=== PATIENT | female | born 1965 | race Caucasian/White ===

== ENCOUNTER 2017-03-01 08:56 | Emergency (ER) | payer OTHER ==
[2017-03-01 09:42] VITALS: BP 123/77
--- NOTE | 2017-03-01 09:43 | UC ---
Throat Pain/Nasal Fransico HPI - HPI Summary HPI Summary: sinus pain and pressure x 7 days + nasal congestion , pnd, sore throat , no fever, no chills, no cough hx of psoriasis right elbow , been itchy - History of Current Complaint Chief Complaint: UCRespiratory Stated Complaint: SINUS Time Seen by Provider: 03/01/17 09:34 Hx Obtained From: Patient Hx Last Menstrual Period: 02/27/17 Onset/Duration: Gradual Onset, Lasting Days - 7, Still Present Severity: Moderate Cough: None Associated Signs & Symptoms: Positive: Sinus Discomfort, Nasal Discharge, Rash - right elbow. Negative: Wheezing, Fever, Vomiting - Allergies/Home Medications Allergies/Adverse Reactions: Allergies Allergy/AdvReac Type Severity Reaction Status Date / Time Gluten Meal Allergy See Comment Verified 03/01/17 09:28 Home Medications: Home Medications Loratadine 10 mg PO DAILY 03/01/17 [History Confirmed 03/01/17] PMH/Surg Hx/FS Hx/Imm Hx - Additional Past Medical History Additional PMH: psoriasis - Surgical History Surgical History: Yes Surgery Procedure, Year, and Place: x 3, tubal ligation, carpal tunnel both arms - Family History Known Family History: Positive: Hypertension - Social History Alcohol Use: Occasionally Substance Use Type: None Smoking Status (MU): Never Smoked Tobacco Household Exposure Type: Cigarettes - Immunization History Most Recent Influenza Vaccination: Not the Season Review of Systems Constitutional: Negative Skin: Rash Eyes: Negative ENT: Sore Throat, Ear Ache, Nasal Discharge Respiratory: Negative Cardiovascular: Negative Gastrointestinal: Negative Genitourinary: Negative All Other Systems Reviewed And Are Negative: Yes Physical Exam Triage Information Reviewed: Yes Appearance: Well-Appearing, No Pain Distress, Well-Nourished Vital Signs: Initial Vital Signs Temp 98.6 F 03/01/17 09:23 Pulse 85 03/01/17 09:23 Resp 16 03/01/17 09:23 BP 123/77 03/01/17 09:23 Pulse Ox 100 03/01/17 09:23 Eyes: Positive: Conjunctiva Clear ENT: Positive: Normal ENT inspection, Hearing grossly normal, Pharyngeal erythema, Nasal congestion, Nasal drainage, TMs normal. Negative: Tonsillar swelling, Tonsillar exudate Neck: Positive: Supple, Nontender, No Lymphadenopathy Respiratory: Positive: Chest non-tender, Lungs clear, Normal breath sounds Cardiovascular: Positive: RRR, No Murmur, Pulses Normal Skin: Positive: rashes - psoriasis right elbow Throat Pain/Nasal Course/Dx - Differential Dx/Diagnosis Provider Diagnoses: sinusitis. psoriasis Discharge - Discharge Plan Condition: Stable Disposition: HOME Prescriptions: Amoxicillin/Clavulanate TAB* [Augmentin TAB 875*] 875 mg PO BID #20 tab Triamcinolone 0.1% CREAM(NF) [Kenalog Cream 0.1%(NF)] 1 applic TOPICAL BID #60 gm Patient Education Materials: Sinusitis (ED), Psoriasis (ED) Referrals: Veronika Briggs MD [Primary Care Provider] - 7 Days
== END 2017-03-01 09:49 | disposition home or self-care (01) ==
LOC: UCCORT 08:56
DX: J32.9 Chronic sinusitis, unspecified (principal); L40.9 Psoriasis, unspecified
CPT/HCPCS: 99212; G0463

== ENCOUNTER 2017-12-12 10:18 | Emergency (ER) | payer OTHER ==
[2017-12-12 11:19] VITALS: BP 117/74
[2017-12-12] MEDS ORDERED: Dexamethasone TAB* 4 MG PO ONE (11:50)
--- NOTE | 2017-12-12 11:50 | UC ---
UC General HPI - HPI Summary HPI Summary: pt is c/o having a sore throat and swollen glands for about a week. she has nasal congestion but states that is chronic from allergies. she reports having chiils but no cough, sob or difficulty with swallowing. - History of Current Complaint Chief Complaint: UCRespiratory Stated Complaint: SORE THROAT Time Seen by Provider: 12/12/17 11:43 Hx Obtained From: Patient Hx Last Menstrual Period: 12/04/17 Onset/Duration: Gradual Onset Timing: Constant Pain Intensity: 6 Aggravating: nothing Alleviating: nothing including otc medications Associated Signs & Symptoms: Positive: Fever - subjective. Negative: Headache, SOB - Allergy/Home Medications Allergies/Adverse Reactions: Allergies Allergy/AdvReac Type Severity Reaction Status Date / Time gluten Allergy Unknown GI Upset Verified 12/12/17 11:11 Home Medications: Home Medications Celecoxib [Celebrex 50 MG CAP] 50 mg PO BID 12/12/17 [History Confirmed 12/12/17 ] PMH/Surg Hx/FS Hx/Imm Hx Previously Healthy: No - OA c-spine. Reactive airways - Surgical History Surgical History: Yes Surgery Procedure, Year, and Place: x 3, tubal ligation, carpal tunnel both arms. NECK- NERCVE BLOCK - Family History Known Family History: Positive: Hypertension - Social History Alcohol Use: Occasionally Substance Use Type: None Smoking Status (MU): Never Smoked Tobacco Household Exposure Type: Cigarettes - Immunization History Most Recent Influenza Vaccination: Not the Season Vaccination Up to Date: Yes Review of Systems Constitutional: Negative Skin: Negative Eyes: Negative ENT: Sore Throat, Nasal Discharge Respiratory: Negative Cardiovascular: Negative Gastrointestinal: Negative Genitourinary: Negative Motor: Negative Neurovascular: Negative Musculoskeletal: Arthralgia - neck-chronic and unchanged Neurological: Negative Psychological: Negative Is Patient Immunocompromised?: No All Other Systems Reviewed And Are Negative: Yes Physical Exam Triage Information Reviewed: Yes Appearance: Well-Appearing Vital Signs: Initial Vital Signs Temp 99.1 F 12/12/17 11:13 Pulse 82 12/12/17 11:13 Resp 16 12/12/17 11:13 BP 117/74 12/12/17 11:13 Pulse Ox 100 12/12/17 11:13 Vital Signs Reviewed: Yes Eye Exam: Normal ENT: Positive: Pharyngeal erythema, Nasal congestion, TMs normal, Uvula midline - with mild erythema and moderated swelling. no airway compromise.. Negative: Nasal drainage, Tonsillar swelling, Tonsillar exudate, Trismus, Muffled voice, Hoarse voice, Sinus tenderness Neck: Positive: Supple, No Lymphadenopathy, Tenderness @ - peritonsilar nodes Respiratory: Positive: Lungs clear, Normal breath sounds Cardiovascular: Positive: RRR, No Murmur Abdomen Description: Positive: Nontender, No Organomegaly, Soft Bowel Sounds: Positive: Present Musculoskeletal: Positive: ROM Intact Neurological: Positive: Alert Psychological: Positive: Age Appropriate Behavior Skin Exam: Normal Diagnostics - Laboratory Diagnostic Studies Completed/Ordered: rapid strep=neg Course/Dx - Course Course Of Treatment: non toxic, no concern for abscess, no airway compromise. rapid strep was neg; however, will cover for presumptive bacterial infection. decadron po here for the swelling as well. need for close f/u advised. - Differential Dx - Multi-Symptom Provider Diagnoses: Uvulitis Discharge - Sign-Out/Discharge Documenting (check all that apply): Discharge - Discharge Plan Condition: Stable Disposition: HOME Prescriptions: Amoxicillin/Clavulanate TAB* [Augmentin TAB 875*] 875 mg PO BID 10 Days #20 tab Patient Education Materials: Uvulitis (ED) Referrals: Veronika Briggs MD [Primary Care Provider] - - Billing Disposition and Condition Condition: STABLE Disposition: HOME
== END 2017-12-12 12:08 | disposition home or self-care (01) ==
LOC: UCCORT 10:18
DX: K12.2 Cellulitis and abscess of mouth (principal); Z77.22 Contact with and (suspected) exposure to environmental tobacco smoke (acute) (chronic)
CPT/HCPCS: 87651; 99212; G0463; J8540

== ENCOUNTER 2018-07-31 13:46 | Emergency (ER) | payer OTHER ==
--- OUTSIDE RECORDS SUMMARY | 2018-07-31 14:27 | XMS REPORT | Continuity of Care Document ---
:1965 External Reference #:[id number] Author Name Michaelle Marti M.D. Address [address] [place] [address] Care Team Providers Name Role Phone Veronika Briggs MD Primary Care Physician Unavailable Payers Type Date Identification Numbers Payment Provider Subscriber Effective: Policy Number: Lifetime Benefit Viri Darling 2012 [id number] Solution Group Number: [id number] [address] [address] PayID: [place] [address] Advance Directives Description No Information Available Problems Date Description Provider Status Onset: 05/16/2018 Chronic sinusitis Michaelle Marti M.D. Active Onset: 05/16/2018 Allergic rhinitis Michaelle Marti M.D. Active Onset: 05/16/2018 Uncomplicated moderate persistent Michaelle Marti M.D. Active asthma Family History Date Family Member(s) Problem(s) Comments General Seasonal Allergies General Asthma General Bronchitis General Diabetes General Gastroesophageal Reflux Disease (GERD) General Heart Disease General Hypertension General Thyroid Disease General sinus disorders Father Seasonal Allergies Father Asthma Father Bronchitis Father Diabetes Father Thyroid Disease Father sinus disorders Mother Gastroesophageal Reflux Disease (GERD) Mother Heart Disease Mother Hypertension Social History Type Date Description Comments Sex Unknown Lives With Spouse Lives With Son Home Environment 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 Home Environment Has a window air conditioner Home Environment Stairs are present Home Environment Unfinished Basement Home Environment The basement is wet and dehumidifier used Home Environment The basement is wet and sump pump used Home Environment 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 Home Environment Mattress is 3 years old Home Environment Mattress is encased in an allergy proof case Home Environment Regular Mattress Home Environment Pillows are encased in an allergy proof case Home Environment Pillows are polyester Home Environment Pillows are rubber (foam) Home Environment Uses a dehumidifier Home Environment There are draperies in the home Home Environment The home is margarita Home Environment The floors are wood Home Environment The floors are carpeted Home Environment Uses propane gas heating Home Environment [place] Home Environment Water Source: Well Tobacco Use Start: Unknown Home is not smoke-free Smoke-Free Work is smoke-free Pets 3 dogs Pets Animals sleep in bedroom 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 ETOH Use Occasionally consumes alcohol Tobacco Use Start: Unknown Patient has never smoked Recreational Drug Use Denies Drug Use Allergies, Adverse Reactions, Alerts Description No Known Drug Allergies Medications Medication Date Status Form Strength Qnty SIG Indications Ordering Provider Symbicort 05/16 Active Aerosol 80-4.5mcg 10.20 2 puffs J45.40 Michaelle M /2017 /Act 0gm inhalation Kaia, twice a day M.DBerkley Mometasone 05/16 Active Suspension 50mcg/Act 17gm 2 sprays in J30.9 [facility] Furoate /2017 each joel Martitril Iram daily Levocetirizine 05/16 Active Tablets 5mg 30tab 1 by mouth J30.9 [facility] Dihydrochloride /2017 s every day Iram Marti Ventolin HFA Active Aerosol 108(90Bas 2 every 4 Unknown /0000 e) hours as mcg/Act needed Celebrex Active Capsules 50mg 1 tab twice Unknown /0000 a day Iron 100 Plus Active Tablets 100-250-0 three times Unknown /0000 .025-1mg a day Immunizations CPT Code Status Date Vaccine Lot # 61554 Given Unknown Pneumococcal Conjugate Vaccine 13 Valent For Intramuscular Use Vital Signs Date Vital Result Comment 07/04/2018 11:46am Height 62.5 inches 5'2.50" Weight 202.00 lb Weight 91.627 kg Respiratory Rate 18 /min Heart Rate 89 /min O2 % BldC Oximetry 96 % BP Systolic 108 mmHg BP Diastolic 76 mmHg Asthma Control Test 24 BMI (Body Mass Index) 36.4 kg/m2 05/16/2018 2:58pm Height 62.5 inches 5'2.50" Weight 202.00 lb Weight 91.627 kg Respiratory Rate 20 /min Heart Rate 98 /min O2 % BldC Oximetry 97 % BP Systolic 126 mmHg BP Diastolic 92 mmHg Asthma Control Test 23 BMI (Body Mass Index) 36.4 kg/m2 Results Test Date Facility Test Result H/L Range Note Laboratory test 05/19/2018 [facility] Cat <0.10 kU/L Class 0 [address] Hair/[place] [address] [phone] Dog Hair/Dander 3.13 kU/L Class III D Farinae Mite 17.70 kU/L Class IV D Pteronyssinus 17.20 kU/L Class IV [place],White <0.10 kU/L Class 0 Maple/[place] Ige T001 <0.10 kU/L Class 0 Miky,White <0.10 kU/L Class 0 [place] Tree <0.10 kU/L Class 0 Elm,Icelandic (White) <0.10 kU/L Class 0 [place],White <0.10 kU/L Class 0 T022 Pecan Tree <0.10 kU/L Class 0 [place],Icelandic T061 <0.10 kU/L Class 0 [place],Black <0.10 kU/L Class 0 Anthony 10.70 kU/L Class IV Orchard Grass 8.24 kU/L Class IV Ragweed,Short/ <0.10 kU/L Class 0 Ruth Elder,Rough W016 <0.10 kU/L Class 0 Cocklebur <0.10 kU/L Class 0 2 Alternaria Alternata 0.22 kU/L Class 0/I Apergillis Fumigatus Ige <0.10 kU/L Class 0 Cladosporium Herbarum <0.10 kU/L Class 0 Birch,White <0.10 kU/L Class 0 Plantain,Lithuanian <0.10 kU/L Class 0 Pigweed,Rough <0.10 kU/L Class 0 Lambs Quarter <0.10 kU/L Class 0 [place] Tree Ige T010 <0.10 kU/L Class 0 1 Levels of Specific IgE Class Description of Class ----- < 0.10 0 Negative 0.10 - 0.31 0/I Equivocal/Low 0.32 - 0.55 I Low 0.56 - 1.40 II Moderate 1.41 - 3.90 III High 3.91 - 19.00 IV Very High 19.01 - 100.00 V Very High >100.00 Very High 2 Performed at: [facility] [id number] Steam Engineer: Esteban Brown MD, Phone: [phone] Procedures Date Code Description Status 07/04/2018 99738 Pre PFT Completed 05/16/2018 63604 Pulmonary Function Test Completed Encounters Type Date Location Provider Dx Diagnosis Office Visit 07/04/2018 [facility] Michaelle Garner45.40 Moderate persistent 11:40a Debra Marti. asthma, uncomplicated J32.9 Chronic sinusitis, unspecified J30.1 Allergic rhinitis due to pollen J30.89 Other allergic rhinitis J30.81 Allergic rhinitis due to animal (cat) (dog) hair and dander Office Visit 05/16/2018 3:00p [place] Michaelle Mejia.40 Moderate persistent Office Iram Marti asthma, uncomplicated J30.9 Allergic rhinitis, unspecified J32.9 Chronic sinusitis, unspecified Plan of Treatment Future Appointment(s):08/22/2018 4:20 pm - Michaelle Marti M.D. at [facility]07/04/2018 - Michaelle Marti M.D.J45.40 Moderate persistent asthma, wvjtbmicgdpttW80.9 Chronic sinusitis, oipsyutgzrbJ45.1 Allergic rhinitis due to jkypkbF85.89 Other allergic lkrvysasV34.81 Allergic rhinitis due to animal (cat ) (dog) hair and danderFollow up:4 months, CHECK-UP/FOLLOW UP VISIT: Continued management of patient's medical care.Recommendations:prePFT today Pathophysiology of asthma reviewed labs reviewed - copy provided to patient Environmental controls reviewed risks/benefits of IT discussed - pt not interested at this point. continue Albuterol 2 puffs every 4 hours as needed for cough, shortness of breath or chest tightness. Call if using >2x/week consistently continue Symbicort 80/4.5 2 puffs twice daily; rinse mouth after use continue Levocetirizine 5 mg once daily continue Mometasone 2 sprays to each nostril once daily callif infections recur - would recommend immune work up in that case
[2018-07-31] MEDS ORDERED: Dexamethasone IV* 4 MG/ML 1 ML (4 MG) PO ONE (14:30)
--- NOTE | 2018-07-31 14:36 | UC ---
UC General HPI - HPI Summary HPI Summary: sore throat x 2 weeks. - History of Current Complaint Stated Complaint: SORE THROAT Time Seen by Provider: 07/31/18 14:25 Hx Obtained From: Patient Hx Last Menstrual Period: 12/04/17 Onset/Duration: Gradual Onset Timing: Constant Alleviating: partial with gargling Associated Signs & Symptoms: Negative: Fever - Allergy/Home Medications Allergies/Adverse Reactions: Allergies Allergy/AdvReac Type Severity Reaction Status Date / Time gluten Allergy Unknown GI Upset Verified 07/31/18 14:32 Home Medications: Home Medications Budesonide/Formote 160/4.5(NF) [Symbicort 160/4.5 (NF)] 1 puff INH BID 07/31/18 [History Confirmed 07/31/18] Levocetirizine Dihydrochloride [Xyzal Allergy 24Hr] 5 mg PO DAILY 07/31/18 [ History Confirmed 07/31/18] PMH/Surg Hx/FS Hx/Imm Hx Respiratory History: Asthma - Surgical History Surgical History: Yes Surgery Procedure, Year, and Place: x 3, tubal ligation, carpal tunnel both arms. NECK- NERCVE BLOCK - Family History Known Family History: Positive: Hypertension - Social History Occupation: Employed Full-time Alcohol Use: Occasionally Substance Use Type: None Smoking Status (MU): Never Smoked Tobacco Household Exposure Type: Cigarettes - Immunization History Most Recent Influenza Vaccination: Not the 2014/2015 Season Vaccination Up to Date: Yes Review of Systems All Other Systems Reviewed And Are Negative: Yes ENT: Positive: Sore Throat Is Patient Immunocompromised?: No Physical Exam Triage Information Reviewed: Yes Appearance: Well-Appearing Eyes: Positive: Conjunctiva Clear ENT: Positive: Pharyngeal erythema, TMs normal, Uvula midline - and mildly swollen with some erythema. Negative: Nasal congestion, Nasal drainage, Trismus , Muffled voice, Hoarse voice Neck: Positive: Supple, Nontender, Enlarged Nodes @ - peritonsilar Respiratory: Positive: Lungs clear, Normal breath sounds Cardiovascular: Positive: RRR, No Murmur Abdomen Description: Positive: Nontender, No Organomegaly, Soft Bowel Sounds: Positive: Present Musculoskeletal: Positive: ROM Intact Neurological: Positive: Alert Psychological: Positive: Age Appropriate Behavior Skin Exam: Normal Course/Dx - Course Course Of Treatment: non toxic, no concern for abscess; however, ill with a sore throat for several days with worsening and uvulitis on exam thus will tx for presumptive bacterial infection. - Differential Dx - Multi-Symptom Provider Diagnoses: uvulitis Discharge - Sign-Out/Discharge Documenting (check all that apply): Patient Departure All imaging exams completed and their final reports reviewed: No Studies - Discharge Plan Condition: Stable Disposition: HOME Prescriptions: Amoxicillin/Clavulanate TAB* [Augmentin TAB 875*] 875 mg PO BID 10 Days #20 tab Patient Education Materials: Uvulitis (ED) Referrals: Deann Garcia MD [Primary Care Provider] - 4 Days - Billing Disposition and Condition Condition: STABLE Disposition: Home
[2018-07-31 14:42] VITALS: BP 142/86
[2018-07-31] MEDS ORDERED: Dexamethasone TAB* 4 MG PO ONE (14:49)
== END 2018-07-31 14:57 | disposition home or self-care (01) ==
LOC: UCCORT 13:46
DX: K12.2 Cellulitis and abscess of mouth (principal); J45.909 Unspecified asthma, uncomplicated
CPT/HCPCS: 99212; G0463; J8540

== ENCOUNTER 2018-09-07 17:47 | Emergency (ER) | payer OTHER ==
[2018-09-07 20:15] VITALS: BP 146/92
--- NOTE | 2018-09-07 20:38 | UC ---
Throat Pain/Nasal Fransico HPI - HPI Summary HPI Summary: Treated for right sided tonsillar infection with augmentin on 08/08. At that time, had noted uvular swelling. Experienced continued oropharyngeal swelling, and her PCP started oral steroid late July with was just completed. Continues to have right tonsillar enlargement with a crypt filled with yellow exudate. Has persistent swelling in the tonsillar nodes, but does not feel unwell and has not had a fever. Mild dysphagia. Hx of asthma, started Symbicort in the summer, no hx of thrush. Has mild voice hoarsensss today. Tonsillitis treated with antibiotics and decadron November 2017; document reviewed and does not specify sidedness of tonsillar enlargement. - History of Current Complaint Chief Complaint: UCGeneralIllness Stated Complaint: ST Time Seen by Provider: 09/07/18 20:37 Hx Obtained From: Patient Hx Last Menstrual Period: current Onset/Duration: Gradual Onset, Lasting Weeks Severity: Moderate Pain Intensity: 7 Cough: Nonproductive Associated Signs & Symptoms: Positive: Dysphagia, Hoarseness - Epiglottits Risk Factors Epiglottis Risk Factors: Negative - Allergies/Home Medications Allergies/Adverse Reactions: Allergies Allergy/AdvReac Type Severity Reaction Status Date / Time gluten Allergy Unknown GI Upset Verified 09/07/18 20:07 Home Medications: Home Medications Ibuprofen TAB* [Advil TAB*] 400 mg PO Q6H PRN 09/07/18 [History Confirmed ] Triamcinolone 0.1% CREAM(NF) [Kenalog Cream 0.1%(NF)] 1 applic TOPICAL BID PRN 09/07/18 [History Confirmed 09/07/18] PMH/Surg Hx/FS Hx/Imm Hx Respiratory History: Asthma - Surgical History Surgical History: Yes Surgery Procedure, Year, and Place: x 3, tubal ligation, carpal tunnel both arms. NECK- NERCVE BLOCK - Family History Known Family History: Positive: Hypertension - Social History Occupation: Employed Full-time Lives: With Family Alcohol Use: Occasionally Substance Use Type: None Smoking Status (MU): Never Smoked Tobacco Household Exposure Type: Cigarettes - Immunization History Most Recent Influenza Vaccination: Not the 2015/2016 Season Vaccination Up to Date: Yes Review of Systems All Other Systems Reviewed And Are Negative: Yes Constitutional: Positive: Negative Skin: Positive: Negative Eyes: Positive: Negative ENT: Positive: Sore Throat Respiratory: Positive: Negative Cardiovascular: Positive: Negative Gastrointestinal: Positive: Negative Genitourinary: Positive: Negative Motor: Positive: Negative Neurovascular: Positive: Negative Musculoskeletal: Positive: Negative Neurological: Positive: Negative Psychological: Positive: Negative Is Patient Immunocompromised?: No Physical Exam Triage Information Reviewed: Yes Appearance: Well-Appearing, Pain Distress - mild Vital Signs: Initial Vital Signs Temp 98.1 F 09/07/18 20:10 Pulse 110 09/07/18 20:10 Resp 18 09/07/18 20:10 BP 146/92 09/07/18 20:10 Pulse Ox 100 09/07/18 20:10 Eyes: Positive: Conjunctiva Clear ENT Exam: Other - No evidence or oral thrush ENT: Positive: Tonsillar swelling - right tonsillar enlargement with crypt with exudate superior tonsil. Mild uvular swelling and injection., Tonsillar exudate - on right Dental Exam: Normal Neck: Positive: Supple, Nontender, Enlarged Nodes @ - right tonsillar area has firm large node, mildly tender. Respiratory: Positive: Lungs clear, Normal breath sounds Cardiovascular: Positive: RRR, No Murmur Musculoskeletal Exam: Normal Neurological Exam: Normal Psychological Exam: Normal Skin Exam: Normal Throat Pain/Nasal Course/Dx - Course Course Of Treatment: persistent enlarged right tonsil with adenopathy post antibiotics and steroids, will resume steroids and have ENT assessment. - Differential Dx/Diagnosis Differential Diagnosis/HQI/PQRI: Tonsillitis, Other - tonsillar neoplasm Provider Diagnosis: Tonsillitis Discharge - Sign-Out/Discharge Documenting (check all that apply): Patient Departure All imaging exams completed and their final reports reviewed: No Studies - Discharge Plan Condition: Stable Disposition: HOME Prescriptions: predniSONE [Deltasone 20 MG TAB] 20 mg PO BID #10 tablet Patient Education Materials: Tonsillitis (ED) Referrals: Deann Garcia MD [Primary Care Provider] - Chapin Simon MD [Medical Doctor] - Additional Instructions: As discussed, the persistent right tonsillar swelling is not behaving like a typical tonsil infection. At this time, and evaluation by ENT is advised--please call for the earliest possible appointment. Continue steroids--a five day course has been sent to your pharmacy. - Billing Disposition and Condition Condition: STABLE Disposition: Home
[2018-09-07] MEDS ORDERED: predniSONE TAB* 20 MG PO ONE (21:14)
--- NOTE | 2018-09-11 07:19 | UC ---
- Progress Note Progress Note: normal kathi throat no change [facility] 09/11 Course/Dx - Diagnoses Provider Diagnoses: Tonsillitis Discharge - Sign-Out/Discharge Documenting (check all that apply): Post-Discharge Follow Up All imaging exams completed and their final reports reviewed: No Studies - Discharge Plan Condition: Stable Disposition: HOME Prescriptions: predniSONE [Deltasone 20 MG TAB] 20 mg PO BID #10 tablet Patient Education Materials: Tonsillitis (ED) Referrals: Deann Garcia MD [Primary Care Provider] - Chapin Simon MD [Medical Doctor] - Additional Instructions: As discussed, the persistent right tonsillar swelling is not behaving like a typical tonsil infection. At this time, and evaluation by ENT is advised--please call for the earliest possible appointment. Continue steroids--a five day course has been sent to your pharmacy. - Billing Disposition and Condition Condition: STABLE Disposition: Home
== END 2018-09-07 21:25 | disposition home or self-care (01) ==
LOC: UCCORT 17:47
DX: J03.90 Acute tonsillitis, unspecified (principal); J45.909 Unspecified asthma, uncomplicated; Z91.018 Allergy to other foods
CPT/HCPCS: 87070; 87651; 99212; G0463; J7512

== ENCOUNTER 2019-07-24 09:28 | Emergency (ER) | payer OTHER ==
[2019-07-24 09:44] VITALS: BP 116/95
--- NOTE | 2019-07-31 07:10 | UC ---
Throat Pain/Nasal [place] HPI - HPI Summary HPI Summary: sinus pain and pressure x 10 days nasal congestion , green / yellow nasal discharge pnd, fever, chills, body aches, dry cough , sx. not better with otc cold meds - History of Current Complaint Chief Complaint: UCGeneralIllness Stated Complaint: SINUS COMPLAINT,STAFFORD,DIZZY,STIFF NECK Time Seen by Provider: 07/24/19 09:37 Hx Obtained From: Patient Hx Last Menstrual Period: current Onset/Duration: Gradual Onset, Lasting Days - 10, Still Present Severity: Moderate Pain Intensity: 7 Pain Scale Used: 0-10 Numeric Cough: Nonproductive Associated Signs & Symptoms: Positive: Sinus Discomfort, Nasal Discharge, Fever. Negative: Rash - Allergies/Home Medications Allergies/Adverse Reactions: Allergies Allergy/AdvReac Type Severity Reaction Status Date / Time gluten Allergy Unknown GI Upset Verified 07/24/19 09:40 Home Medications: Home Medications Loratadine/Pseudoephedrine [Claritin-D 24 Hour Tablet] 1 each PO DAILY 07/24/19 [History Confirmed 07/24/19] Meclizine TAB* [Antivert 12.5 TAB*] 25 mg PO TID PRN 07/24/19 [History Confirmed 07/24/19] PMH/Surg Hx/FS Hx/Imm Hx - Additional Past Medical History Additional PMH: gastric ulcer, vertigo Cardiovascular History: Hypertension Respiratory History: Asthma - Surgical History Surgical History: Yes Surgery Procedure, Year, and Place: x 3, tubal ligation, carpal tunnel both arms. NECK- NERCVE BLOCK. tonsillectomy - Family History Known Family History: Positive: Hypertension - Social History Alcohol Use: None Substance Use Type: None Smoking Status (MU): Never Smoked Tobacco Have You Smoked in the Last Year: No Household Exposure Type: Cigarettes - Immunization History Most Recent Influenza Vaccination: Not the 2015/2015 Season Vaccination Up to Date: Yes Review of Systems All Other Systems Reviewed And Are Negative: Yes Constitutional: Positive: Fever, Chills, Fatigue Skin: Positive: Negative Eyes: Positive: Negative ENT: Positive: Sore Throat, Ear Ache, Nasal Discharge, Sinus Congestion, Sinus Pain/Tenderness Respiratory: Positive: Cough Is Patient Immunocompromised?: No Physical Exam Triage Information Reviewed: Yes Appearance: Well-Appearing, No Pain Distress, Well-Nourished Vital Signs: Initial Vital Signs Temp 97.5 F 07/24/19 09:37 Pulse 92 07/24/19 09:37 Resp 16 07/24/19 09:37 BP 116/95 07/24/19 09:37 Pulse Ox 100 07/24/19 09:37 Vital Signs Reviewed: Yes Eye Exam: Normal Eyes: Positive: Conjunctiva Clear ENT: Positive: Normal ENT inspection, Hearing grossly normal, Pharyngeal erythema, Nasal drainage, TMs normal, Sinus tenderness. Negative: TM bulging, TM dull, TM red Neck: Positive: Supple, Nontender, No Lymphadenopathy Respiratory: Positive: Chest non-tender, Lungs clear, Normal breath sounds, No respiratory distress Cardiovascular: Positive: RRR, No Murmur, Pulses Normal Abdominal Exam: Normal Throat Pain/Nasal Course/Dx - Differential Dx/Diagnosis Provider Diagnosis: Sinusitis Discharge ED - Sign-Out/Discharge Documenting (check all that apply): Patient Departure All imaging exams completed and their final reports reviewed: No Studies - Discharge Plan Condition: Stable Disposition: HOME Prescriptions: Amoxicillin/Clavulanate TAB* [Augmentin TAB 875*] 875 mg PO BID #20 tab Patient Education Materials: Sinusitis (ED) Forms: *Work Release Referrals: Deann Garcia MD [Primary Care Provider] - If Needed - Billing Disposition and Condition Condition: STABLE Disposition: Home
== END 2019-07-24 09:56 | disposition home or self-care (01) ==
LOC: UCCORT 09:28
DX: J32.9 Chronic sinusitis, unspecified (principal); I10 Essential (primary) hypertension; R42 Dizziness and giddiness
CPT/HCPCS: 99212; G0463

== ENCOUNTER 2019-09-28 14:21 | Emergency (ER) | payer OTHER ==
--- OUTSIDE RECORDS SUMMARY | 2019-09-28 14:55 | XMS REPORT | Continuity of Care Document ---
:1965 External Reference #:[id number] Author Name Migdalia Garcia PNP-BC, DECORATING INSPECTOR, Ibclc Address [address] [facility] [address] [address] Care Team Providers Name Role Phone Deann Garcia MD - Family Medicine Care Team Information Division Merchandise Manager [phone] Problems Active Problems Provider Date Celiac disease Darline Ward M.D. Onset: 09/02/2014 Anemia Darline Ward M.D. Onset: 05/17/2013 Headache Deann Garcia MD Onset: 11/20/2015 Spasm Deann Garcia MD Onset: 11/20/2015 Benign paroxysmal positional vertigo Deann Garcia MD Onset: 11/20/2015 Asthma Gary, EDMUND Rivera Onset: 10/25/2018 Lymphadenopathy Deann Garcia MD Onset: 02/09/2019 Social History Type Date Description Comments Sex Unknown Tobacco Use Start: Unknown Never Smoked Cigarettes ETOH Use Rarely consumes alcohol 2 dr/yr Tobacco Use Start: Unknown Patient has never smoked Recreational Drug Use Denies Drug Use Smoking Status Reviewed: 07/31/19 Patient has never smoked Allergies, Adverse Reactions, Alerts Description No Known Drug Allergies Medications Active Medications SIG Qnty Indications Ordering Date Provider Amoxicillin/Clavulanat 1 by mouth twice 20tabs Migdalia Garcia, 08/01/2019 e Potassium a day for 10 days PNP-BC, DECORATING INSPECTOR, 875-125mg Ibclc Tablets Lidocaine apply a thin 106.32gm M54.2 Bernardune, 02/21/2019 5% Ointment layer to the Jenniferleigh, upper back/neck DECORATING INSPECTOR up to four times a day for pain Ondansetron dissolve 1 tablet 12tabs Clune, 10/25/2018 4mg Tablets on the tongue Nicole Dispers every 6-8 hours DECORATING INSPECTOR as needed for nausea mdd#4 Proventil HFA 2 puffs every 4 6.700gm Deann Garcia, 04/14/2016 108(90Base) hours as needed mcg/Act Aerosol for wheezing, shortnesss of breath or persistent cough Benadryl Allergy 1 po qhs as 30caps Clune, 03/19/2016 25mg needed Jenniferleigh, Capsules DECORATING INSPECTOR Cyclobenzaprine HCL 1 by mouth three 30tabs R51 Clune, 11/20/2015 10mg times a day as Jenniferleigh, Tablets needed muscle DECORATING INSPECTOR spasms Sumatriptan Succinate take one tablet 16tabs R51 Clune, 11/20/2015 by mouth at onset Nicole 100mg Tablets of migraine DECORATING INSPECTOR symptoms - may repeat in 2 hours as needed - maximum daily dose = 2 Meclizine HCL 1 by mouth three 30tabs Clune, 25mg times a day as Bridgetfermagy, Tablets needed DECORATING INSPECTOR Iron 1 tabl by mouth Unknown 325(65Fe) mg Tablets daily Xyzal Allergy 24HR 1 by mouth every Unknown 5mg day Tablets Symbicort 2 puffs by mouth Deann Garcia, 80-4.5mcg/Act twice a day MD Aerosol Celecoxib Take One Capsule Unknown 200mg Capsules By Mouth Twice A Day History Medications Amoxicillin 1 tab by mouth twice Unknown 07/24/2019 - 08/01/2019 875mg Tablets a day Medications Administered in Office Medication SIG Qnty Indications Ordering Provider Date Methylprednisolone acetate Malathi Floyd, 11/14/2018 (Depomedrol) 80mg injection RPAC Injection Immunizations CPT Code Status Date Vaccine Lot # [id number] Given 05/17/2019 Tdap injection [id number] Given 07/01/2017 Influenza Virus Vaccine, Quadrivalent, Slit Virus, [id number] Im Use [id number] Given 07/14/2015 Influenza Vaccine (Fluzone) Age 3 And Older [id number] Given 06/19/2013 flu vaccination Vital Signs Date Vital Result Comment 08/01/2019 10:18am BP Systolic 146 mmHg BP Diastolic 90 mmHg BP Systolic Sitting Right Arm 144 mmHg BP Diastolic Sitting Right Arm 100 mmHg Body Temperature 97.9 F Heart Rate 102 /min Respiratory Rate 18 /min Height 62 inches 5'2" Weight 190.00 lb BMI (Body Mass Index) 34.7 kg/m2 BSA (Body Surface Area) 1.87 m2 [place] body weight in kilograms 50 kg O2 % BldC Oximetry 96 % 07/25/2019 2:17pm BP Systolic 137 mmHg BP Diastolic 102 mmHg Body Temperature 98.0 F Heart Rate 98 /min Respiratory Rate 18 /min Height 62 inches 5'2" Weight 190.25 lb BMI (Body Mass Index) 34.8 kg/m2 BSA (Body Surface Area) 1.87 m2 [place] body weight in kilograms 50 kg O2 % BldC Oximetry 98 % Ra Results Test Acquired Date Facility Test Result H/L Range Note CBC 05/17/2019 [facility] White Blood 9.0 K/uL Normal 3.1-10.7 1 W/Automated [address] [place] [address] [phone] Red Blood Count 5.41 M/uL High 3.90-5.40 Hemoglobin 12.6 gm/dL Normal 11.6-15.8 Hematocrit 42.1 % Normal 36.0-46.1 Mean Cell Volume 77.8 fl Low 80.9-99.0 Mean Corpuscular HGB 23.3 pg Low 25.9-32.7 Mean Corpuscular HGB Conc 29.9 g/dL Low 30.8-34.3 Platelet Count 223 K/uL Normal 155-360 Red Cell Distri Width SD 59.0 fl High 36-47 Red Cell Distri Width %CV 21.7 % High 11.7-14.4 Mean Platelet Volume 11.6 fl Normal 8.9-12.4 Neut% 57.7 % Normal 40.4-72.8 Lymph % 30.6 % Normal 20.0-42.0 [place] % 6.7 % Normal 4.3-13.2 Eo% 3.8 % Normal 0.0-6.6 Bas% 0.8 % Normal 0.0-1.1 Immature Grans 0.4 % Normal 0.0-5.0 NRBC % 0.0 /100WBC < 10/ 100 WBC Neut# 5.18 K/uL Normal 1.8-7.0 Lymph # 2.75 K/uL Normal 1.0-4.0 [place] # 0.60 K/uL Normal 0.3-0.9 Eos # 0.34 K/uL Normal 0.0-0.5 Baso # 0.07 K/uL Normal 0.0-0.1 Immature Grans Absolute 0.04 K/uL NRBC # 0.00 K/uL Laboratory test 05/17/2019 [facility] Ferritin 14 ng/mL Normal 8-252 finding [address] [place] [address] [phone] LDL Cholesterol 05/17/2019 [facility] Cholesterol 179 mg/dL <200 2 Profile [address] [place] [address] [phone] Triglycerides 144 mg/dL <150 3 HDL Cholesterol 47 mg/dL >40 4 LDL-Cholesterol 103 mg/dL < 100 5 Comprehensive 05/17/2019 [facility] Glucose 86 mg/dL Normal 74-106 Metabolic Panel [address] [place] [address] [phone] BUN 24 mg/dL High 7-18 Creatinine 0.9 mg/dL Normal 0.6-1.3 Glom Filtration Rate, Estimate >60 mL/min >60 If >60 mL/min >60 6 BUN/Creat 26.6 ratio Sodium 140 mmol/L Normal 136-145 Potassium 4.0 mmol/L Normal 3.5-5.1 Chloride 109 mmol/L High 98-107 Carbon Dioxide 27 mmol/L Normal 21-32 Anion Gap 4 mEq/L Low 8-16 Calcium 8.7 mg/dL Normal 8.5-10.1 Total Protein 7.5 g/dL Normal 6.4-8.2 Albumin 3.9 g/dL Normal 3.4-5.0 Globulin 3.6 g/dL Normal 1.9-4.3 Alb/Glob 1.1 ratio Bilirubin,Total 0.3 mg/dL Normal 0.2-1.0 Sgot/Ast 10 U/L Low 15-37 7 SGPT/Alt 17 U/L Normal 12-78 Alkaline Phosphatase 71 U/L Normal 45-117 HPV High Risk - 05/17/2019 [facility] HPV High Results on 8 Alt Ref Lab [address] [facility] [place] [address] [phone] Urine Dipstick 05/17/2019 [facility] Inhouse Ua Leuko - Negative Ua Nitrite - Negative Ua Urobilinogen .2 0.2 - 1.0 E.U./dL Ua Protein - Negative Ua PH 7 6.5-7.5 Ua Blood - Negative Ua Specific [place] 1.015 1.010-1.030 Ua Ketones - Negative Ua Bilirubin - Negative Ua Glucose - Negative 1 D64.9 K90.0 Z13.220 Z13.1 AND Z12.4 2 Reference Guidelines*: Desirable: ........... < 200 mg/dL Borderline High: ..... 200-239 mg/dL High: ................ >= 240 mg/dL * The National Cholesterol Education Program (NCEP) 3 Reference Guidelines*: Normal: ............. < 150 mg/dL Borderline High: .... 150-199 mg/dL High: ............... 200-499 mg/dL Very High: .......... > 500 mg/dL * Source: National Cholesterol Education Program (NCEP) 4 Reference Guidelines*: Low HDL: ..... < 40 mg/dL Normal: ..... 40-60 mg/dL Desirable: ... > 60 mg/dL *The National Cholesterol Education Program(NCEP) 5 Reference Guidelines*: Optimal:........... <100 mg/dL Near Optimal....... 100-129 mg/dL Borderline High.... 130-159 mg/dL High............... 160-189 mg/dL Very High.......... >=190 mg/dL * Source: National Cholesterol Education Program (NCEP) 6 Note: Persistent reduction for 3 months or more in an eGFR <60 mL/min/1.73 m2 defines CKD. Patients with eGFR values >/=60 mL/min/1.73 m2 may also have CKD if evidence of persistent proteinuria is present. The original MDRD equation for estimated GFR is not valid for patients less than 18 years of age. Additional information may be found at www.kdoqi.org. 7 Values below the stated reference ranges of AST and ALT can be seen in normal populations. Clinical correlation is suggested. 8 Hard copy of report to be sent by mail Report may be viewed in Clinical Review, or in PCI under Medical Record Forms Procedures Date Code Description Status 08/01/2019 65486 EKG-Tracing And Report Completed 09/19/2018 [id number] Mammogram Completed 05/03/2017 [id number] Mammogram Completed 09/19/2014 [id number] Colonoscopy Completed Medical Devices Description No Information Available Encounters Type Date Location Provider Dx Diagnosis Office Visit 08/01/2019 [facility] Migdalia Garcia, J01.90 Acute sinusitis, 10:00a [address] PNP-BC, DECORATING INSPECTOR, unspecified Ibclc H81.11 Benign paroxysmal vertigo, right ear R07.89 Other chest pain Office Visit 07/25/2019 [facility] H81.11 Benign 2:15p Medicine EDMUND Redd paroxysmal RD vertigo, right ear Office Visit 05/17/2019 Deann Hidalgo MD Z00.00 Encntr for 1:00p Medicine [place] general adult RD medical exam w/o abnormal findings Z01.411 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) (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) w abnormal findings D64.9 Anemia, unspecified K90.0 Celiac disease M54.2 Cervicalgia J45.20 Mild intermittent asthma, uncomplicated Z23 Encounter for immunization Office Visit 02/21/2019 [facility] M54.2 Cervicalgia 11:30a Medicine EDMUND [address] RD Office Visit 02/09/2019 Deann Hidalgo MD R59.0 Localized 3:00p Medicine [place] enlarged lymph RD nodes M54.2 Cervicalgia Z12.31 Encntr screen mammogram for malignant neoplasm of breast Assessments Date Code Description Provider 08/01/2019 J01.90 Acute sinusitis, unspecified Migdalia Garcia PNP-BC, DECORATING INSPECTOR, Ibclc 08/01/2019 H81.11 Benign paroxysmal vertigo, right ear Migdalia Garcia PNP-BC , DECORATING INSPECTOR, Ibclc 08/01/2019 R07.89 Other chest pain Migdalia Garcia PNP-BC, DECORATING INSPECTOR, Ibclc 07/25/2019 H81.11 Benign paroxysmal vertigo, right ear Nicole Vega FNP 05/17/2019 Z00.00 Encounter for general adult medical Deann Garcia MD examination without abnormal findings 05/17/2019 Z01.411 Encounter for gynecological Deann Garcia MD examination (general) (routine) with abnormal findings 05/17/2019 D64.9 Anemia, unspecified Deann Garcia MD 05/17/2019 K90.0 Celiac disease Deann Garcia MD 05/17/2019 M54.2 Cervicalgia Deann Garcia MD 05/17/2019 J45.20 Mild intermittent asthma, Deann Garcia MD uncomplicated 05/17/2019 Z23 Encounter for immunization Deann Garcia MD 02/21/2019 M54.2 Cervicalgia Nicole Vega FNP 02/09/2019 R59.0 Localized enlarged lymph nodes Deann Garcia MD 02/09/2019 M54.2 Cervicalgia Deann Garcia MD 02/09/2019 Z12.31 Encounter for screening mammogram Deann Garcia MD for malignant neoplasm of Plan of Treatment 08/01/2019 - Migdalia Garcia, PNP-BC, DECORATING INSPECTOR, QeullM58.90 Acute sinusitis, unspecifiedComments:stop amoxicillin and we'll start the Augmentin twice a day and if you aren't 100% at the end of the 10 days let us know and we'll do a second round.H81.11 Benign paroxysmal vertigo, right earComments:improving but not at goal yet. continue current meds.R07.89 Other chest painComments:I doubt that your pain is cardiac, your EKG looks normal but if the pain persists or comes with any associated symptoms you should go to the ER. if it persists let us know and we could set up a stress test as well. Functional Status Functional Condition Comment Date Status Glasses Active Mental Status Description No Information Available Referrals Refer to Reason for Referral Status Appt Date Neno Bateman M.D. POLYP AND LESION EXTRUDING FROM [facility]ERV[facility]; CALL Closed 06/06/2019 AND SPEAK TO DESTINY JOYNER, NURSE THERE, SHE IS HER DAUGHTER AND WILL SET UP HER APPOINTMENT. [address] [place] [address] [phone]
--- OUTSIDE RECORDS SUMMARY | 2019-09-28 14:55 | XMS REPORT | Continuity of Care Document ---
:1965 External Reference #:[id number] Author Name Gregory Novak MD Address [address] [place] [id number] Care Team Providers Name Role Phone Deann Garcia MD - Family Medicine Care Team Information Clinical Transformation Specialist Problems Active Problems Provider Date Celiac disease Darline Ward M.D. Onset: 09/02/2014 Anemia Darline Ward M.D. Onset: 05/17/2013 Headache Deann Garcia MD Onset: 11/20/2015 Spasm Deann Garcia MD Onset: 11/20/2015 Benign paroxysmal positional vertigo Deann Garcia MD Onset: 11/20/2015 Asthma Gary, Nicole, FACILITIES CLERK Onset: 10/25/2018 Lymphadenopathy Deann Garcia MD Onset: 02/09/2019 Social History Type Date Description Comments Sex Unknown Tobacco Use Start: Unknown Never Smoked Cigarettes ETOH Use Rarely consumes alcohol 2 dr/yr Tobacco Use Start: Unknown Patient has never smoked Recreational Drug Use Denies Drug Use Smoking Status Reviewed: 08/06/19 Patient has never smoked Allergies, Adverse Reactions, Alerts Description No Known Drug Allergies Medications Active Medications SIG Qnty Indications Ordering Date Provider Amoxicillin/Clavulanat 1 by mouth twice 20tabs Migdalia Garcia, 08/01/2019 e Potassium a day for 10 days PNP-BC, FACILITIES CLERK, 875-125mg Ibclc Tablets Lidocaine apply a thin 106.32gm M54.2 Clune, 02/21/2019 5% Ointment layer to the Jenniferleigh, upper back/neck FACILITIES CLERK up to four times a day for pain Ondansetron dissolve 1 tablet 12tabs Clune, 10/25/2018 4mg Tablets on the tongue Jenniferdesireegh, Dispers every 6-8 hours FACILITIES CLERK as needed for nausea mdd#4 Proventil HFA 2 puffs every 4 6.700gm Deann Garcia, 04/14/2016 108(90Base) hours as needed mcg/Act Aerosol for wheezing, shortnesss of breath or persistent cough Benadryl Allergy 1 po qhs as 30caps Clune, 03/19/2016 25mg needed Jenniferleigh, Capsules FACILITIES CLERK Cyclobenzaprine HCL 1 by mouth three 30tabs R51 Clune, 11/20/2015 10mg times a day as Jenniferleigh, Tablets needed muscle FACILITIES CLERK spasms Sumatriptan Succinate take one tablet 16tabs R51 Clune, 11/20/2015 by mouth at onset Nicole, 100mg Tablets of migraine FACILITIES CLERK symptoms - may repeat in 2 hours as needed - maximum daily dose = 2 Meclizine HCL 1 by mouth three 30tabs Clune, 25mg times a day as Jenkittyfermagy, Tablets needed FACILITIES CLERK Iron 1 tabl by mouth Unknown 325(65Fe) [...] acetate Malathi Floyd, 11/14/2018 (Depomedrol) 80mg injection [id number] Injection Immunizations CPT Code Status Date Vaccine Lot # [id number] Given 05/17/2019 Tdap injection [id number] Given 07/01/2017 Influenza Virus Vaccine, Quadrivalent, Slit Virus, [id number] Im Use [id number] Given 07/14/2015 Influenza Vaccine (Fluzone) Age 3 And Older [id number] Given 06/19/2013 flu vaccination Vital Signs Date Vital Result Comment 08/06/2019 12:58pm BP Systolic 122 mmHg BP Diastolic 84 mmHg Body Temperature 98.7 F Heart Rate 120 /min Respiratory Rate 18 /min Height 62 inches 5'2" Weight 192.00 lb BMI (Body Mass Index) 35.1 kg/m2 BSA (Body Surface Area) 1.88 m2 [place] body weight in kilograms 50 kg O2 % BldC Oximetry 98 % 08/01/2019 10:18am BP Systolic 146 mmHg BP Diastolic 90 mmHg BP Systolic Sitting Right Arm 144 mmHg BP Diastolic Sitting Right Arm 100 mmHg Body Temperature 97.9 F Heart Rate 102 /min Respiratory Rate 18 /min Height 62 inches 5'2" Weight 190.00 lb BMI (Body Mass Index) 34.7 kg/m2 BSA (Body Surface Area) 1.87 m2 [place] body weight in kilograms 50 kg O2 % BldC Oximetry 96 % Results Test Acquired Date Facility Test Result H/L Range Note CBC 05/17/2019 [facility] White Blood 9.0 K/uL Normal 3.1-10.7 1 W/Automated [address] [place] [address] [phone] Red Blood Count 5.41 M/uL High 3.90-5.40 [...] 40.4-72.8 Lymph % 30.6 % Normal 20.0-42.0 [place] % 6.7 % Normal 4.3-13.2 Eo% 3.8 % Normal 0.0-6.6 Bas% 0.8 % Normal 0.0-1.1 Immature Grans 0.4 % Normal 0.0-5.0 NRBC % 0.0 /100WBC < 10/ 100 WBC Neut# 5.18 K/uL Normal 1.8-7.0 Lymph # 2.75 K/uL Normal 1.0-4.0 [place] # 0.60 K/uL Normal 0.3-0.9 Eos # 0.34 K/uL Normal 0.0-0.5 Baso # 0.07 K/uL Normal 0.0-0.1 Immature Grans Absolute 0.04 K/uL NRBC # 0.00 K/uL Laboratory test 05/17/2019 [facility] Ferritin 14 ng/mL Normal 8-252 finding [address] [place] [address] [phone] LDL Cholesterol 05/17/2019 [facility] Cholesterol 179 mg/dL <200 2 Profile [address] [place] [address] [phone] Triglycerides 144 mg/dL <150 3 HDL Cholesterol 47 mg/dL >40 4 LDL-Cholesterol 103 mg/dL < 100 5 Comprehensive 05/17/2019 [facility] Glucose 86 mg/dL Normal 74-106 Metabolic Panel [address] [place] [address] [phone] BUN 24 mg/dL High 7-18 Creatinine 0.9 [...] Normal 45-117 HPV High Risk - 05/17/2019 [facility] HPV High Results on 8 Alt Ref Lab [address] [facility] [place] [address] [phone] Urine Dipstick 05/17/2019 [facility] Ua Leuko - Negative Ua Nitrite - Negative Ua Urobilinogen .2 0.2 - 1.0 E.U./dL Ua Protein - Negative Ua PH 7 6.5-7.5 Ua Blood - Negative Ua Specific [place] 1.015 1.010-1.030 Ua Ketones - Negative Ua [...] Forms Procedures Date Code Description Status 08/01/2019 83294 EKG-Tracing And Report Completed 09/19/2018 [id number] Mammogram Completed 05/03/2017 [id number] Mammogram Completed 09/19/2014 [id number] Colonoscopy Completed Medical Devices Description No Information Available Encounters Type Date Location Provider Dx Diagnosis Office Visit 08/06/2019 [facility] Gregory Novak MD J01.90 Acute sinusitis, 1:00p [address] unspecified G43.009 Migraine w/o aura, not intractable, w/o status migrainosus Office Visit 08/01/2019 10:00a [facility] Migdalia Garcia J01.90 Acute sinusitis, West RD PNP-BC, FACILITIES CLERK, unspecified Ibclc H81.11 Benign paroxysmal vertigo, right ear R07.89 Other chest pain Office Visit 07/25/2019 [facility] H81.11 Benign 2:15p Medicine Deangelo Rivera, FACILITIES CLERK paroxysmal RD vertigo, right ear Office Visit 05/17/2019 Deann Hidalgo MD Z00.00 Encntr for 1:00p Medicine [place] [facility] adult RD medical exam w/o abnormal findings Z01.411 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) w abnormal findings D64.9 Anemia, unspecified K90.0 Celiac disease M54.2 Cervicalgia J45.20 Mild intermittent asthma, uncomplicated Z23 Encounter for immunization Office Visit 02/21/2019 [facility] M54.2 Cervicalgia 11:30a Medicine EDMUND Red[address] RD Office Visit 02/09/2019 Deann Hidalgo MD R59.0 Localized 3:00p Medicine [place] enlarged lymph RD nodes M54.2 Cervicalgia Z12.31 Encntr screen mammogram for malignant neoplasm of breast Assessments Date Code Description Provider 08/06/2019 J01.90 Acute sinusitis, unspecified Gregory Novak MD 08/06/2019 G43.009 Migraine without aura, not Gregory Novak MD intractable, without status migrainosus 08/01/2019 J01.90 Acute sinusitis, unspecified Migdalia Garcia PNP-BC, FACILITIES CLERK, Ibclc 08/01/2019 H81.11 Benign paroxysmal vertigo, right ear Migdalia Garcia PNP-BC , FACILITIES CLERK, Ibclc 08/01/2019 R07.89 Other chest pain Migdalia Garcia PNP-BC, FACILITIES CLERK, Ibclc 07/25/2019 H81.11 Benign paroxysmal vertigo, right ear CluneBonniemagy , FACILITIES CLERK 05/17/2019 Z00.00 Encounter for general adult medical [...] immunization Deann Garcia MD 02/21/2019 M54.2 Cervicalgia Gary CRISS RiveraP 02/09/2019 R59.0 Localized enlarged lymph nodes Deann Garcia MD 02/09/2019 M54.2 Cervicalgia Deann Garcia MD 02/09/2019 Z12.31 Encounter for screening mammogram Deann Garcia MD for malignant neoplasm of Plan of Treatment No Information Available Functional Status Functional Condition Comment Date Status Glasses Active Mental Status Description No Information Available Referrals Refer to Reason for Referral Status Appt Date Neno Bateman M.D. POLYP AND LESION EXTRUDING FROM [facility]; CALL Closed 06/06/2019 AND SPEAK TO DESTINY JOYNER, NURSE THERE, SHE IS HER DAUGHTER AND WILL SET UP HER APPOINTMENT. [address] [place] [address] [phone]
[2019-09-28 15:04] VITALS: BP 123/85
--- NOTE | 2019-09-28 15:04 | UC ---
UC General HPI - HPI Summary HPI Summary: RN notes - complaints of nausea and headache for past 2 days, states feeling better today. Vomiting yesterday, none today, able to keep fluids done. Took Migraine medicine yesterday with relief. Here for a work note, out of work for past 3 days. Pleasant 53 yo female c/o last 3 days n/v. Most recently dry heaves. Thinks better now, but still feels sick. Minimal diarrhea. No blood. No fever / chills. + h/a, not wol. Does have hx migraines. No rash. Without focal pain. No urinary issues. No cough / congestion / st. Thinks picked up something from her grandchildren, who have been passing around similar sx. Since she has missed 3 days of work, she is in need of a doctor note. - History of Current Complaint Chief Complaint: UCGeneralIllness Stated Complaint: NAUSEA HEADACHE Hx Obtained From: Patient Hx Last Menstrual Period: 09/19/2019 Pain Intensity: 7 - Allergy/Home Medications Allergies/Adverse Reactions: Allergies Allergy/AdvReac Type Severity Reaction Status Date / Time gluten Allergy Unknown GI Upset Verified 07/24/19 09:40 Home Medications: Home Medications Acetaminophen [Tylenol Extra Strength] 1,000 mg PO DAILY 09/28/19 [History Confirmed 09/28/19] PMH/Surg Hx/FS Hx/Imm Hx Previously Healthy: Yes - Surgical History Surgical History: Yes Surgery Procedure, Year, and Place: x 3, tubal ligation, carpal tunnel both arms. NECK- NERCVE BLOCK. tonsillectomy - Family History Known Family History: Positive: Hypertension - Social History Alcohol Use: None Substance Use Type: None Smoking Status (MU): Never Smoked Tobacco Have You Smoked in the Last Year: No Household Exposure Type: Cigarettes - Immunization History Most Recent Influenza Vaccination: Not the 2015/2015 Season Vaccination Up to Date: Yes Review of Systems All Other Systems Reviewed And Are Negative: Yes Constitutional: Positive: Fatigue Skin: Positive: Negative Eyes: Positive: Negative ENT: Positive: Negative Respiratory: Positive: Negative Cardiovascular: Positive: Negative Gastrointestinal: Positive: Other - see hpi Genitourinary: Positive: Other - see hpi Motor: Positive: Negative Neurovascular: Positive: Negative Musculoskeletal: Positive: Negative Neurological: Positive: Other - see hpi Psychological: Positive: Negative Is Patient Immunocompromised?: No Physical Exam Triage Information Reviewed: Yes Appearance: Well-Nourished - sitting up, looks tired but nad Vital Signs: Initial Vital Signs Temp 98.5 F 09/28/19 14:59 Pulse 90 09/28/19 14:59 Resp 16 09/28/19 14:59 BP 123/85 09/28/19 14:59 Pulse Ox 100 09/28/19 14:59 Vital Signs Reviewed: Yes Eye Exam: Normal ENT: Positive: Pharynx normal - mm a little dry Neck exam: Normal Neck: Positive: Supple, Nontender Respiratory Exam: Normal Respiratory: Positive: Chest non-tender, Lungs clear, Normal breath sounds, No respiratory distress, No accessory muscle use Cardiovascular Exam: Normal Cardiovascular: Positive: RRR, No Murmur, Pulses Normal, Brisk Capillary Refill Abdominal Exam: Other - soft, nd, no focal tenderness although upper abd sore generally, no cvat Bowel Sounds: Positive: Hyperactive Musculoskeletal Exam: Normal Neurological Exam: Normal - grossly nonfocal Psychological Exam: Normal - nad Skin Exam: Normal Course/Dx - Course Course Of Treatment: Declines further w/u (blood work, anti-emetic, etc). H/a not wol. Hx migraines, although possibly dehydration is a component. D/w pt. Reports that she has what she needs at home. Will seek medical attention for worse or new or unresolved problems. Questions as posed answered to the best of my ability. - Diagnoses Provider Diagnosis: Nausea & vomiting, Headache Discharge ED - Sign-Out/Discharge Documenting (check all that apply): Patient Departure All imaging exams completed and their final reports reviewed: No Studies - Discharge Plan Condition: Stable Disposition: HOME Patient Education Materials: Dehydration (ED), Acute Headache (ED), Acute Nausea and Vomiting (ED) Forms: *Work Release Referrals: Deann Garcia MD [Primary Care Provider] - Additional Instructions: Hydrate as best / much as possible. Please seek medical attention for worse or new or unresolved symptoms. - Billing Disposition and Condition Condition: STABLE Disposition: Home
== END 2019-09-28 15:26 | disposition home or self-care (01) ==
LOC: UCCORT 14:21
DX: R11.2 Nausea with vomiting, unspecified (principal); R51 Headache; Z91.09 Other allergy status, other than to drugs and biological substances
CPT/HCPCS: 99211; G0463

== ENCOUNTER 2022-02-17 11:56 | Observation (INO) ==
[~2022-02-17 11:56] MED LIST: Clindamycin 900 MG/D5W BAG IVPB ONE
[2022-02-17] MEDS ORDERED: Clindamycin 900 MG/D5W BAG IVPB ONE (12:15)
[2022-02-17] MEDS ORDERED: Ondansetron 4 mg VIAL 2 MG/ML 2 ml VIAL ONE ×2 (12:41→17:05)
[2022-02-17] MEDS ORDERED: oxyCODONE SR 10 mg TAB ONE (12:41)
[2022-02-17] MEDS ORDERED: Scopolamine 1 mg/72hr PATCH ONE (12:41)
[2022-02-17 12:49] LABS: Hematocrit 45 % (35-47); Hemoglobin 14.7 g/dL (12.0-16.0); Mean Corpuscular HGB Conc 33 g/dL (31-36); Mean Corpuscular Hemoglobin 27 pg (27-31); Mean Corpuscular Volume 82 fL (80-97); Mean Platelet Volume 8.6 fL (7.4-10.4); Platelet Count 187 10^3/uL (150-450); Red Blood Count 5.42 10^6 /uL (3.70-4.87); Red Cell Distribution Width 14 % (10-15); White Blood Count 5.3 10^3/uL (3.5-10.8)
[2022-02-17] MEDS ORDERED: Lidocaine 1% MPF 5 ML VIAL ONE (13:04)
[2022-02-17] MEDS ORDERED: Iohexol 350 (CONTRAST) 50 ML SDV IV ONE (13:04)
[2022-02-17] MEDS ORDERED: Heparin 2 UNITS/ML IVPREMIX 3,000 UNIT/1,500 ML BAG IV ONE (13:04)
[2022-02-17 13:17] LABS: Anion Gap 5 mmol/L (2-11); Blood Urea Nitrogen 18 mg/dL (6-24); CO2 Carbon Dioxide 29 mmol/L (22-32); Calcium 9.3 mg/dL (8.6-10.3); Chloride 105 mmol/L (101-111); Glucose 81 mg/dL (70-100); Potassium 3.9 mmol/L (3.5-5.0); Sodium 139 mmol/L (135-145)
[2022-02-17 13:24] LABS: HCG Pregnancy < 0.60 mIU/mL
[2022-02-17] MEDS ORDERED: fentaNYL 250 mcg/5 ml 50 MCG/ML 5 ml VIAL (250 MCG) ONE (13:32)
[2022-02-17] MEDS ORDERED: Midazolam 5 mg/5 ml VIAL 1 mg/ml 5 ml VIAL (5 mg) ONE (13:32)
[2022-02-17] MEDS ORDERED: nitroGLYCERIN DRIP 25,000 MCG/250 ML BTL ONE (13:32)
[2022-02-17] MEDS ORDERED: HYDROmorphone PCA 1 MG/ML Titrat per Protocol PCA SCH (16:00)
[2022-02-17] MEDS: Ondansetron 4 mg VIAL 2 MG/ML 2 ml VIAL IV SCH ×2 (17:07→23:07)
[2022-02-17] MEDS ORDERED: Albuterol HFA INHALER 8 gm MDI INH PRN (17:23)
[2022-02-17] MEDS: NS 0.9% 1,000 ML IV SCH (17:56)
[2022-02-18] MEDS: Ondansetron 4 mg VIAL 2 MG/ML 2 ml VIAL IV SCH (04:28)
[2022-02-18] MEDS: NS 0.9% 1,000 ML IV SCH (04:32)
[2022-02-18 07:00] LABS: ABS Eosinophils 0.2 10^3/ul (0-0.6); ABS Lymphocytes 1.8 10^3/ul (1.0-4.8); ABS Monocytes 0.6 10^3/ul (0-0.8); ABS Neutrophils 5.7 10^3/ul (1.5-7.7); Eosinophil % 2.1 %; Hematocrit 39 % (35-47); Hemoglobin 13.2 g/dL (12.0-16.0); Lymphocyte % 21.5 %; Mean Corpuscular HGB Conc 34 g/dL (31-36); Mean Corpuscular Hemoglobin 28 pg (27-31); Mean Corpuscular Volume 83 fL (80-97); Mean Platelet Volume 8.4 fL (7.4-10.4); Platelet Count 179 10^3/uL (150-450); Red Blood Count 4.73 10^6 /uL (3.70-4.87); Red Cell Distribution Width 14 % (10-15); White Blood Count 8.2 10^3/uL (3.5-10.8)
[2022-02-18 07:39] LABS: INR 1.09 (0.86-1.15)
[2022-02-18 07:58] LABS: Calcium 8.5 mg/dL (8.6-10.3); Potassium 3.9 mmol/L (3.5-5.0); eGFR CKD-EPI 97.7 (>60)
[2022-02-18 08:07] VITALS: BP 112/77
[2022-02-18] MEDS ORDERED: HYDROcodone/ACETAMIN 5/325 mg TAB PO PRN (08:44)
[2022-02-18] MEDS ORDERED: CMCS:Ketorolac 10 mg TAB (NF) PO SCH (09:00)
== END 2022-02-18 11:15 | disposition home or self-care (01) ==
LOC: SSU 11:56 → CHICATH 11:56 → SUATTDRO 17:53
PROVIDERS: ADMIT Internal Medicine; ATTEND Internal Medicine
PROC: ANG.UFE (2022-02-17 13:10)